=== PATIENT | male | born 1965 | race Two or more races ===

== ENCOUNTER → 2020-03-23 | Outpatient (CLI) | payer OTHER ==
[~2020-03-23] VITALS: Ht 165.1 cm; Wt 81.6 kg
== END | disposition home or self-care (01) ==
LOC: OFIC 805 11:00
DX: R13.19 Other dysphagia (principal); R22.1 Localized swelling, mass and lump, neck; M62.838 Other muscle spasm; J03.80 Acute tonsillitis due to other specified organisms

== ENCOUNTER 2020-04-11 13:44 | Outpatient (CLI) | payer OTHER ==
[~2020-04-11] VITALS: Ht 152.4 cm; Wt 81.6 kg
[~2020-04-11 13:44] MED LIST: PEPCID AC20 MG PO; PRILOSEC OTC20 MG PO
== END 2020-04-11 14:19 | disposition home or self-care (01) ==
LOC: OFIC 805 13:44
PROVIDERS: ATTEND Otolaryngology
DX: R22.1 Localized swelling, mass and lump, neck (principal); J03.80 Acute tonsillitis due to other specified organisms; R13.19 Other dysphagia; J38.3 Other diseases of vocal cords